=== PATIENT | female | born 1990 | race Caucasian/White ===

== ENCOUNTER 2021-09-06 09:23 | Outpatient (CLI) | payer OTHER ==
[~2021-09-06 09:23] MED LIST: ASPIRIN CHEWABL81 MG PO; IBUPROFEN600 MG PO; NITROSTAT0.4 MG SL
== END 2021-09-06 11:53 | disposition home or self-care (01) ==
LOC: GENOP 09:23
DX: O99.891 Other specified diseases and conditions complicating pregnancy (principal); R10.30 Lower abdominal pain, unspecified; M54.9 Dorsalgia, unspecified; O36.8130 Decreased fetal movements, third trimester, not applicable or unspecified; Z3A.36 36 weeks gestation of pregnancy
CPT/HCPCS: 81001; G0463

== ENCOUNTER 2021-09-24 05:26 | Inpatient (IN) | payer OTHER ==
[~2021-09-24] VITALS: Ht 167.6 cm; Wt 97.5 kg
[2021-09-24] MEDS ORDERED: PRENATABS FA T1 EACH PO (06:22)
[2021-09-24 07:37] LABS: HEMOGLOBIN 12.4 gm/dl (12.3-15.3); RED BLOOD COUNT 4.31 M/UL (4.00-5.10)
[2021-09-26] MEDS ORDERED: HYDROCODON-ACE1 EAC4 PO (10:09)
[2021-09-26] MEDS ORDERED: COLACE 100MG C100 MG PO (10:09)
[2021-09-26] MEDS ORDERED: FERROUS SULFAT325 MG PO (10:09)
[2021-09-26] MEDS ORDERED: IBUPROFEN600 MG PO (10:09)
== END 2021-09-26 14:53 | disposition home or self-care (01) | DRG 788 ==
LOC: OB 05:26
PROVIDERS: ADMIT Obstetrics & Gynecology
PROC: 3E0234Z Introduction of Serum, Toxoid and Vaccine into Muscle, Percutaneous Approach (ICD-10-PCS; 2021-09-24)
PROC: 10D00Z1 Extraction of Products of Conception, Low, Open Approach (ICD-10-PCS; principal; 2021-09-24 07:30)
DX: O34.211 Maternal care for low transverse scar from previous cesarean delivery (principal); Z20.822 Contact with and (suspected) exposure to COVID-19; Z3A.39 39 weeks gestation of pregnancy; Z37.0 Single live birth; O99.214 Obesity complicating childbirth; O99.334 Smoking (tobacco) complicating childbirth; F17.210 Nicotine dependence, cigarettes, uncomplicated; E66.9 Obesity, unspecified
CPT/HCPCS: 36415; 81001; 82800; 85014; 85018; 85025; 90686; 90715; C9113; J0690; J1170; J1200; J2590; J7120; U0002